=== PATIENT | male | born 1975 | race African-American/Black ===

== ENCOUNTER 2017-09-28 08:18 | Emergency (ER) | payer OTHER ==
[~2017-09-28] VITALS: Ht 165.1 cm; Wt 112.2 kg
[2017-09-28 09:09] LABS: HEMATOCRIT 47.2 % (38.0-50.0); HEMOGLOBIN 15.8 G/DL (12.5-16.6); MCH 29.3 PG (29.0-34.0); MCHC 33.5 G/DL (30.0-36.0); MCV 87.4 FL (86-99); PLATELET COUNT 281 K/uL (156-360); RBC DIS.WIDTH-CV 13.5 % (11.8-14.6); RBC DIS.WIDTH-SD 43.1 % (39-53)
[2017-09-28 09:14] LABS: APPEARANCE CLEAR ((CLEAR)); BILIRUBIN NEGATIVE; BLOOD NEGATIVE; COLOR YELLOW ((YELLOW)); GLUCOSE (STRIP) NEGATIVE; KETONES NEGATIVE; LEUKOCYTES NEGATIVE; NITRITE NEGATIVE; PROTEIN (STRIP) 30; SPECIFIC GRAVITY 1.018 (1.000-1.030); UCUL ADDED? NO; UROBILINOGEN 0.2 MG/DL (0.2-1.0)
[2017-09-28 09:18] LABS: ALBUMIN 4.4 g/dL (3.2-4.8)
[2017-09-28 09:19] LABS: CHLORIDE 104 mEq/L (99-109); SODIUM 138 mEq/L (136-147)
[2017-09-28 09:21] LABS: GLUCOSE 95 mg/dL (70-99); TOTAL PROTEIN 8.1 g/dL (6.4-8.3)
[2017-09-28 09:23] LABS: TOTAL BILIRUBIN 0.3 mg/dL (0.0-1.0)
[2017-09-28 09:56] LABS: ALKALINE PHOSPHATASE 76 IU/L (3-129); ALT (GPT) 16 IU/L (3-49); AST (GOT) 19 IU/L (2-34); CREATININE 0.8 MG/DL (0.6-1.3); GFR ESTIMATE (CALCULATED) > 59 mL/min/ (58.99-99999); LIPASE 7 U/L (1.0-51.0); UREA NITROGEN (BUN) 11 mg/dL (9-23)
[2017-09-28] MEDS ORDERED: BENTYL20 MG PO (11:07)
[2017-09-28] MEDS ORDERED: ZOFRAN ODT4 MG PO (11:07)
[2017-09-28 11:29] VITALS: BP 125/71
[2017-09-29] MEDS ORDERED: ZOFRAN4 MG PO (15:44)
[2017-09-29] MEDS ORDERED: BENTYL20 MG PO (15:45)
[2017-09-29] MEDS ORDERED: PROVENTIL HFA6.7 GM IH (15:47)
[2017-09-29] MEDS ORDERED: KLONOPIN1 MG PO (15:49)
[2017-09-29] MEDS ORDERED: DESYREL100 MG PO (16:12)
[2017-09-29] MEDS ORDERED: ADVAIR 100/501 DISK IH (16:12)
== END 2017-09-28 12:04 | disposition home or self-care (01) ==
LOC: EME 08:18
PROVIDERS: Nurse Practitioner Family
DX: R10.84 Generalized abdominal pain (principal); R11.2 Nausea with vomiting, unspecified; R19.7 Diarrhea, unspecified; R93.3 Abnormal findings on diagnostic imaging of other parts of digestive tract; J44.9 Chronic obstructive pulmonary disease, unspecified; F32.9 Major depressive disorder, single episode, unspecified; F41.9 Anxiety disorder, unspecified; F17.200 Nicotine dependence, unspecified, uncomplicated; Z91.5 Personal history of self-harm
CPT/HCPCS: 74177; 80053; 81003; 83690; 85027; 99281; 99285; J0500; J1885; J2405; J7030

== ENCOUNTER 2017-09-29 10:39 | Inpatient (IN) | payer OTHER ==
[~2017-09-29] VITALS: Ht 165.1 cm; Wt 112.3 kg
[~2017-09-29 10:39] MED LIST: BENTYL20 MG PO; ZOFRAN ODT4 MG PO
[2017-09-29 11:48] LABS: HEMATOCRIT 47.9 % (38.0-50.0); HEMOGLOBIN 15.7 G/DL (12.5-16.6); MCH 28.6 PG (29.0-34.0); MCHC 32.8 G/DL (30.0-36.0); MCV 87.4 FL (86-99); PLATELET COUNT 303 K/uL (156-360); RBC DIS.WIDTH-CV 13.5 % (11.8-14.6); RBC DIS.WIDTH-SD 43.3 % (39-53); RED BLOOD COUNT 5.48 M/uL (4.00-5.50); WHITE BLOOD COUNT 9.5 K/uL (4.1-10.2)
[2017-09-29 12:01] LABS: ALBUMIN 4.3 g/dL (3.2-4.8)
[2017-09-29 12:02] LABS: CHLORIDE 107 mEq/L (99-109); POTASSIUM 4.8 mEq/L (3.7-5.4); SODIUM 140 mEq/L (136-147)
[2017-09-29 12:04] LABS: GLUCOSE 87 mg/dL (70-99); TOTAL PROTEIN 8.2 g/dL (6.4-8.3)
[2017-09-29 13:07] LABS: TOTAL BILIRUBIN 0.3 MG/DL (0.0-1.0)
[2017-09-29 13:14] LABS: ALKALINE PHOSPHATASE 70 IU/L (3-129); ALT (GPT) 16 IU/L (3-49); AST (GOT) 23 IU/L (2-34); CREATININE 0.9 MG/DL (0.6-1.3); GFR ESTIMATE (CALCULATED) > 59 mL/min/ (58.99-99999); LIPASE 6 U/L (1.0-51.0); UREA NITROGEN (BUN) 11 mg/dL (9-23)
[2017-09-29] MEDS ORDERED: ZOFRAN4 MG PO (15:44)
[2017-09-29] MEDS ORDERED: BENTYL20 MG PO (15:45)
[2017-09-29] MEDS ORDERED: PROVENTIL HFA6.7 GM IH (15:47)
[2017-09-29] MEDS ORDERED: KLONOPIN1 MG PO (15:49)
[2017-09-29] MEDS ORDERED: DESYREL100 MG PO (16:12)
[2017-09-29] MEDS ORDERED: ADVAIR 100/501 DISK IH (16:12)
[2017-09-29 16:55] VITALS: BP 144/79
[2017-09-29 17:01] LABS: C DIFF TOXIN NEGATIVE (NEGATIVE)
[2017-09-29 19:10] VITALS: BP 122/58
[2017-09-29 23:06] VITALS: BP 136/66
[2017-09-30 05:53] LABS: HEMATOCRIT 42.2 % (38.0-50.0); MCH 28.2 PG (29.0-34.0); MCHC 31.8 G/DL (30.0-36.0); MCV 88.7 FL (86-99); PLATELET COUNT 261 K/uL (156-360); RBC DIS.WIDTH-CV 13.8 % (11.8-14.6); RBC DIS.WIDTH-SD 44.6 % (39-53); RED BLOOD COUNT 4.76 M/uL (4.00-5.50); WHITE BLOOD COUNT 6.5 K/uL (4.1-10.2)
[2017-09-30 05:54] LABS: HEMOGLOBIN 13.4 G/DL (12.5-16.6)
[2017-09-30 06:03] LABS: CHLORIDE 111 MEQ/L (99-109); CREATININE 0.8 MG/DL (0.6-1.3); GFR ESTIMATE (CALCULATED) > 59 mL/min/ (58.99-99999); GLUCOSE 91 mg/dL (70-99); POTASSIUM 4.2 MEQ/L (3.7-5.4); SODIUM 144 MEQ/L (136-147); UREA NITROGEN (BUN) 9 mg/dL (9-23)
[2017-09-30 08:05] VITALS: BP 126/66
[2017-09-30 11:46] VITALS: BP 120/69
[2017-09-30 15:50] VITALS: BP 145/69
[2017-09-30 23:52] VITALS: BP 123/95
[2017-10-01 05:16] LABS: CHLORIDE 111 mEq/L (99-109); SODIUM 141 mEq/L (136-147)
[2017-10-01 05:17] LABS: GLUCOSE 80 mg/dL (70-99)
[2017-10-01 05:21] LABS: CREATININE 0.8 mg/dL (0.6-1.3); GFR ESTIMATE (CALCULATED) > 59 mL/min/ (58.99-99999)
[2017-10-01 05:22] LABS: UREA NITROGEN (BUN) 8 mg/dL (9-23)
[2017-10-01 08:38] VITALS: BP 115/67
[2017-10-01 16:58] VITALS: BP 133/75
[2017-10-02 05:26] LABS: BASOPHIL (%) 0.3 % (0-1); EOSINOPHIL (%) 3.9 % (0-5); EOSINOPHIL COUNT 0.3 K/uL (0-0.3); HEMATOCRIT 40.4 % (38.0-50.0); HEMOGLOBIN 13.2 G/DL (12.5-16.6); IMMATURE GRANULOCYTE (%) 0.4 % (0.0-0.7); LYMPHOCYTE (%) 19.9 % (15-42); LYMPHOCYTE COUNT 1.3 K/uL (1.0-2.8); MCH 28.4 PG (29.0-34.0); MCHC 32.7 G/DL (30.0-36.0); MCV 87.1 FL (86-99); MONOCYTE (%) 11.9 % (3-12); MONOCYTE COUNT 0.8 K/uL (0-0.8); NEUTROPHIL (%) 63.6 % (45-76); NEUTROPHIL COUNT 4.3 K/uL (1.8-6.4); PLATELET COUNT 230 K/uL (156-360); RBC DIS.WIDTH-CV 13.3 % (11.8-14.6); RBC DIS.WIDTH-SD 42.5 % (39-53); RED BLOOD COUNT 4.64 M/uL (4.00-5.50); WHITE BLOOD COUNT 6.7 K/uL (4.1-10.2)
[2017-10-02 05:45] LABS: CHLORIDE 108 MEQ/L (99-109); CREATININE 0.9 MG/DL (0.6-1.3); GFR ESTIMATE (CALCULATED) > 59 mL/min/ (58.99-99999); GLUCOSE 85 mg/dL (70-99); POTASSIUM 3.6 MEQ/L (3.7-5.4); SODIUM 144 MEQ/L (136-147); UREA NITROGEN (BUN) 6 mg/dL (9-23)
[2017-10-02 07:52] VITALS: BP 113/56
[2017-10-02 17:05] VITALS: BP 128/75
[2017-10-02 23:36] VITALS: BP 124/79
[2017-10-03 07:29] VITALS: BP 135/76
[2017-10-03 09:40] LABS: CHLORIDE 105 MEQ/L (99-109); CREATININE 0.9 MG/DL (0.6-1.3); GFR ESTIMATE (CALCULATED) > 59 mL/min/ (58.99-99999); GLUCOSE 104 mg/dL (70-99); POTASSIUM 3.9 MEQ/L (3.7-5.4); SODIUM 145 MEQ/L (136-147); UREA NITROGEN (BUN) 8 mg/dL (9-23)
== END 2017-10-03 09:40 | disposition home or self-care (01) | DRG 389 ==
LOC: EME 10:39 → EDOF 13:22 → 3EAST 13:22 → ENRESERV 13:24 → 3EAST 16:51
PROVIDERS: Hospitalist; Internal Medicine; Nurse Practitioner Family
PROC: 5A09357 Assistance with Respiratory Ventilation, Less than 24 Consecutive Hours, Continuous Positive Airway Pressure (ICD-10-PCS; principal; 2017-09-29)
DX: K56.7 Ileus, unspecified (principal); Z68.41 Body mass index [BMI] 40.0-44.9, adult; F33.9 Major depressive disorder, recurrent, unspecified; K52.9 Noninfective gastroenteritis and colitis, unspecified; G47.33 Obstructive sleep apnea (adult) (pediatric); J43.9 Emphysema, unspecified; F60.2 Antisocial personality disorder; E66.01 Morbid (severe) obesity due to excess calories; F17.210 Nicotine dependence, cigarettes, uncomplicated; I10 Essential (primary) hypertension; F41.9 Anxiety disorder, unspecified; J45.909 Unspecified asthma, uncomplicated; F10.11 Alcohol abuse, in remission; Y90.9 Presence of alcohol in blood, level not specified; Z59.0 Homelessness; Z91.5 Personal history of self-harm; Z73.6 Limitation of activities due to disability; Z91.013 Allergy to seafood; Z91.14 Patient's other noncompliance with medication regimen; Z79.51 Long term (current) use of inhaled steroids
CPT/HCPCS: 74018; 74021; 74022; 74177; 80048; 80053; 81003; 83605; 83690; 85025; 85027; 87493; 87506; 94640; 94640 76; 94660; 99202; 99281; 99285; J0500; J1650; J1885; J2060; J2270; J2405; J3480; J7030; J7040; J7042